=== PATIENT | male | born 2000 | race Caucasian/White ===

== ENCOUNTER 2021-03-30 07:45 | Day surgery (SDC) | payer OTHER ==
[~2021-03-30] VITALS: Ht 185.4 cm; Wt 93.9 kg
[2021-03-30 08:08] VITALS: BP 122/85
[2021-03-30] MEDS ORDERED: CHLORHEXIDINE 15 ML UDC PO ONE (08:30)
[2021-03-30] MEDS ORDERED: HYDR-2214 PO ×2 (08:30→10:49)
[2021-03-30] MEDS ORDERED: LACTATED RINGERS 1,000 ML IV SCH (08:30)
[2021-03-30] MEDS ORDERED: AMOXICILLIN PO (08:30)
[2021-03-30] MEDS ORDERED: FENTANYL PF 100 MCG/2ML ONE ×3 (08:48→11:00)
[2021-03-30] MEDS ORDERED: MIDAZOLAM 1 MG/ML, 2ML ONE (08:48)
[2021-03-30] MEDS ORDERED: ACETAMINOPHEN 325 MG TABLET PO PRN (09:30)
[2021-03-30] MEDS ORDERED: PROMETHAZINE 25 MG/ML, 1ML IVPush PRN (09:30)
[2021-03-30] MEDS ORDERED: ONDANSETRON 2MG/ML, 2ML IVPush PRN (09:30)
[2021-03-30] MEDS ORDERED: OXYcodone 5 MG/5 ML ORAL.SOL UDC PO PRN (09:30)
[2021-03-30] MEDS ORDERED: HYDROcodone/APAP 7.5-325MG/15ML UDC PO PRN (09:30)
[2021-03-30] MEDS ORDERED: PROPOFOL 10 MG/ML, 20ML ONE (09:49)
[2021-03-30] MEDS ORDERED: ONDANSETRON 2MG/ML, 2ML ONE (09:49)
[2021-03-30] MEDS ORDERED: CEFAZOLIN 1,000 MG ONE (09:49)
[2021-03-30] MEDS ORDERED: EPINEPHRINE 1 MG/ML, 1ML ONE (10:28)
[2021-03-30] MEDS ORDERED: BUPIVACAINE/PF 0.5% ONE (10:28)
[2021-03-30] MEDS ORDERED: MEPERIDINE/PF 25MG/ML,1ML ONE (10:52)
[2021-03-30] MEDS ORDERED: MEPERIDINE/PF 25MG/0.5ML IVPush PRN (11:00)
[2021-03-30] MEDS: FENTANYL PF 100 MCG/2ML IV PRN ×2 (11:05→11:19)
[2021-03-30] MEDS ORDERED: OXYcodone 5 MG/5 ML ORAL.SOL UDC ONE (11:20)
[2021-03-30] MEDS ORDERED: HYDROmorphone 2 MG/ML, 1ML ONE (11:25)
[2021-03-30] MEDS: HYDROmorphone 1 MG/ML, 1ML INJ IVPush PRN ×2 (11:31→11:47)
[2021-03-30] MEDS ORDERED: KETOROLAC 30 MG/1 ML ONE (11:40)
[2021-03-30] MEDS: KETOROLAC 30 MG/1 ML IVPush PRN (11:44)
[2021-03-30] MEDS ORDERED: HYDROcodone/APAP 7.5-325MG/15ML UDC ONE (12:53)
== END 2021-03-30 14:05 | disposition home or self-care (01) ==
LOC: OUT 07:45
PROVIDERS: ATTEND Orthopaedic Surgery
DX: S82.121A Displaced fracture of lateral condyle of right tibia, initial encounter for closed fracture (principal); Z20.822 Contact with and (suspected) exposure to COVID-19; V49.88XA Car occupant (driver) (passenger) injured in other specified transport accidents, initial encounter; Y93.89 Activity, other specified; Y92.89 Other specified places as the place of occurrence of the external cause; Y99.8 Other external cause status
CPT/HCPCS: 27535; 73560; 87635; C1713; C1762; J0171; J0690; J1170; J1885; J2175; J2250; J2405; J2704; J3010; J7120; 76000

== ENCOUNTER 2021-03-31 18:39 | Emergency (ER) | payer OTHER ==
[~2021-03-31] VITALS: Ht 185.4 cm; Wt 93.2 kg
[~2021-03-31 18:39] MED LIST: AMOXICILLIN PO; HYDR-2214 PO
[2021-03-31 19:03] VITALS: BP 125/55
[2021-03-31 19:43] LABS: BASOPHILS % (AUTO) 0 % (0-1); EOSINOPHILS % (AUTO) 1 % (1-7); LYMPHOCYTES % (AUTO) 15 % (22-44); MEAN CORPUSCULAR HEMOGLOBIN 29.6 pg (27.5-34.5); MEAN CORPUSCULAR HGB CONC 34.4 g/dL (33.2-36.2); MONOCYTES % (AUTO) 6 % (2-9); NEUTROPHILS % (AUTO) 78 % (42-75); PLATELET COUNT 381 x10^3/uL (130-400); RED BLOOD COUNT 5.18 x10^6/uL (4.38-5.82); RED CELL DISTRIBUTION WIDTH 13.1 % (9.4-14.8)
[2021-03-31 19:48] LABS: ANION GAP 6 mmol/L (5-15); CALCIUM 8.9 mg/dL (8.5-10.1); CHLORIDE 104 mmol/L (98-107); CREATININE 1.14 mg/dL (0.7-1.3)
--- NOTE | 2021-03-31 22:51 | NUR ---
Patient signed out AMA with registration.
== END 2021-03-31 22:52 | disposition left against medical advice (07) ==
LOC: ED 19:00
DX: M25.561 Pain in right knee (principal)
CPT/HCPCS: 36415; 80048; 85025; 99284